=== PATIENT | female | born 1960 | race Caucasian/White ===

== ENCOUNTER → 2017-06-05 | Outpatient (CLI) | payer MEDICARE, OTHER ==
[2017-06-05 15:40] VITALS: BP 127/70; PULSE 69; TEMP 98.4; BMI 34.3
--- NOTE | 2017-06-05 16:03 | P.HPBAR ---
Bariatric H&P - History & Physicial H&P Date: 06/05/17 History & Physicial: Visit/CC: lap band fill Patient initial contact: Initial weight: Initial weight in pounds: Height: 5 ft 2 in Initial BMI: Last weight: Current weight: 85.139 kg Current weight in pounds: 187.70 Current BMI: 34.3 [place] body weight (based on NIH guidelines): 49.895 kg Excess body weight loss: The patient is a 56 year-old F who presents for Bariatric Assessment. He shouldn't presents today for LAP-BAND adjustment. She's not been seen over a year and a half. She currently lives in [place]. She is requesting some fluid removed from her band. 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 HAD WGT LOSS D/ T SURG, NO TX NEEDED FOR SLEEP APNEA. OFF HTN RX SINCE 2013 EST. HX ANKYLOSING SPONDYLITIS IN BACK. History of Any Multi-Drug Resistant Organisms: None Reported Past Surgical History: Appendectomy, Bariatric Surgery, Section, Cholecystectomy, Hysterectomy, Orthopedic Surgery, Tonsillectomy, Tubal Ligation Additional Past Surgical History / Comment(s): LAP BAND 2011. C-S X2. D&C'S. BRONCHS X3. Past Anesthesia/Blood Transfusion Reactions: Family History of Problems w/ Anesthesia, Motion Sickness, Postoperative Nausea & Vomiting (PONV) Additional Past Anesthesia/Blood Transfusion Reaction / Comm: W/ 1ST C-S HAD "WEIRD EXPERIENCE," (MENTAL CHANGES, CONFUSION). SON TAKES LONGER TIME TO AWAKEN , HAS "MISSING CHROMOSOME"; SISTER HAS PONV. Smoking Status: Former smoker Past Alcohol Use History: None Reported Additional Past Alcohol Use History / Comment(s): (SMOKED LIGHTLY [id number] EST) Past Drug Use History: None Reported - Past Family History Mother Sister(s) Family Medical History: Cancer, Deep Vein Thrombosis (DVT) Father Family Medical History: Deep Vein Thrombosis (DVT) Surgical - Exam Vital Signs Temp Pulse BP 98.4 F 69 127/70 06/05/17 15:37 06/05/17 15:37 06/05/17 15:37 - General well developed, no distress - Eyes PERRL - ENT normal pinna - Neck no masses - Respiratory normal expansion - Cardiovascular Rhythm: regular - Abdomen Abdomen: soft, non tender Bariatric Assessment & Plan Plan: The patient LAP-BAND was adjusted. 0.5 mL was removed from the band. She'll follow-up in one month if needed. Bariatric Checklist Checklist: Plan: Checklist: EGD: 1. Hiatal hernia: 2. H. Pylori: HgbA1c: Vitamin D: Smoking: Former smoker Primary care physician referral: Psychiatry clearance: Cardiology clearance: Sleep study: Diet journal: VTE risk score: VTE risk level: Rehab needs at discharge:
== END ==
LOC: BARWHC3 14:15
PROVIDERS: ATTEND Surgery
DX: Z48.815 Encounter for surgical aftercare following surgery on the digestive system (principal); Z98.84 Bariatric surgery status; F17.200 Nicotine dependence, unspecified, uncomplicated
CPT/HCPCS: 99212

== ENCOUNTER → 2018-01-22 | Outpatient (CLI) | payer MEDICARE ==
[2018-01-22 14:47] VITALS: RESP 16; BMI 42.5
--- NOTE | 2018-01-22 15:46 | P.HPBAR ---
Bariatric H&P - History & Physicial H&P Date: 01/22/18 History & Physicial: Visit/CC: band adj Patient initial contact: Initial weight: 160.572 kg Initial weight in pounds: 354.00 Height: 5 ft 2 in Initial BMI: 64.7 Last weight: Current weight: 105.375 kg Current weight in pounds: 232.31 Current BMI: 42.5 [place] body weight (based on NIH guidelines): 49.895 kg Excess body weight loss: 49.8% The patient is a 57 year-old F who presents for Bariatric Assessment. Patient presents today for lab band follow up. She is requesting a fill of her band. 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 HAD WGT LOSS D/ T SURG, NO TX NEEDED FOR SLEEP APNEA. OFF HTN RX SINCE 2013 EST. HX ANKYLOSING SPONDYLITIS IN BACK. History of Any Multi-Drug Resistant Organisms: None Reported Past Surgical History: Appendectomy, Bariatric Surgery, Section, Cholecystectomy, Hysterectomy, Orthopedic Surgery, Tonsillectomy, Tubal Ligation Additional Past Surgical History / Comment(s): LAP BAND 2011. C-S X2. D&C'S. BRONCHS X3. Past Anesthesia/Blood Transfusion Reactions: Family History of Problems w/ Anesthesia, Motion Sickness, Postoperative Nausea & Vomiting (PONV) Additional Past Anesthesia/Blood Transfusion Reaction / Comm: W/ 1ST C-S HAD "WEIRD EXPERIENCE," (MENTAL CHANGES, CONFUSION). SON TAKES LONGER TIME TO AWAKEN , HAS "MISSING CHROMOSOME"; SISTER HAS PONV. Smoking Status: Former smoker Past Alcohol Use History: None Reported Additional Past Alcohol Use History / Comment(s): (SMOKED LIGHTLY [id number] EST) Past Drug Use History: None Reported - Past Family History Mother Sister(s) Family Medical History: Cancer, Deep Vein Thrombosis (DVT) Father Family Medical History: Deep Vein Thrombosis (DVT) Surgical - Exam Vital Signs Resp 16 01/22/18 14:39 - General well developed, no distress - Eyes PERRL - Abdomen Abdomen: soft, non tender Bariatric Assessment & Plan Plan: Patient's lap band was adjusted. She had 0.5 mL added to her band. She currently is 11 mL in the band. She's ill drink water without difficulty. Bariatric Checklist Checklist: Plan: Checklist: EGD: 1. Hiatal hernia: 2. H. Pylori: HgbA1c: Vitamin D: Smoking: Former smoker Primary care physician referral: Psychiatry clearance: Cardiology clearance: Sleep study: Diet journal: VTE risk score: VTE risk level: Rehab needs at discharge:
== END | disposition home or self-care (01) ==
LOC: BARWHC3 14:10
PROVIDERS: ATTEND Surgery
DX: Z46.51 Encounter for fitting and adjustment of gastric lap band (principal); J44.9 Chronic obstructive pulmonary disease, unspecified; M79.7 Fibromyalgia; E78.5 Hyperlipidemia, unspecified; I10 Essential (primary) hypertension; M19.90 Unspecified osteoarthritis, unspecified site; G47.30 Sleep apnea, unspecified; Z99.89 Dependence on other enabling machines and devices; Z85.820 Personal history of malignant melanoma of skin; Z98.84 Bariatric surgery status; Z90.49 Acquired absence of other specified parts of digestive tract; Z98.51 Tubal ligation status; Z87.891 Personal history of nicotine dependence
CPT/HCPCS: 99212

== ENCOUNTER → 2018-02-16 | Outpatient (CLI) | payer MEDICARE ==
[2018-02-16 13:10] LABS: Basophils % (A) 0 %; Eosinophils % (A) 0 %; HCT 45.2 % (34.0-46.0); HGB 15.2 gm/dL (11.4-16.0); Lymphocytes # (A) 1.4 k/uL (1.0-4.8); Lymphocytes % (A) 11 %; MCH 29.7 pg (25.0-35.0); MCHC 33.7 g/dL (31.0-37.0); Mean Platelet Volume 7.6; Monocytes # (A) 0.6 k/uL (0-1.0); Monocytes % (A) 5 %; Neutrophils # (A) 10.5 k/uL (1.3-7.7); Neutrophils % (A) 83 %; Platelet Count 230 k/uL (150-450); RBC 5.13 m/uL (3.80-5.40); RDW 14.5 % (11.5-15.5); WBC 12.7 k/uL (3.8-10.6)
--- NOTE | 2018-02-16 13:18 | XR ---
EXAMINATION TYPE: XR chest 2V DATE OF EXAM: 02/16/2018 COMPARISON: 01/13/1712 HISTORY: Cough and fever for 3 days. TECHNIQUE: Frontal and lateral views of the chest are obtained. FINDINGS: There is no focal air space opacity, pleural effusion, or pneumothorax seen. The cardiac silhouette size is within normal limits. The osseous structures are intact. Mild acromio clavicular arthropathy is seen bilaterally. Minimal degenerative changes of the thoracic spine are noted. Bailee cystectomy clips reside within the right upper quadrant. IMPRESSION: No acute cardiopulmonary process. No focal consolidation to suggest pneumonia.
[2018-02-16 13:33] LABS: ALT 29 U/L (9-52); AST 31 U/L (14-36); Albumin 4.2 g/dL (3.5-5.0); Alkaline Phosphatase 147 U/L (38-126); Anion Gap 17 mmol/L; Blood Urea Nitrogen 10 mg/dL (7-17); C Reactive Protein 62.5 mg/L (<10.0); Calcium 9.9 mg/dL (8.4-10.2); Carbon Dioxide 23 mmol/L (22-30); Chloride 103 mmol/L (98-107); Creatine Kinase 57 U/L (30-135); Glucose 112 mg/dL (74-99); Potassium 4.1 mmol/L (3.5-5.1); Sodium 143 mmol/L (137-145); Total Bilirubin 0.4 mg/dL (0.2-1.3); Total Protein 7.5 g/dL (6.3-8.2)
[2018-02-16 14:08] LABS: Erythrocyte Sedimentation Rate 39 mm/hr (0-20)
== END | disposition home or self-care (01) ==
LOC: LABWHC1 12:06
PROVIDERS: ATTEND Internal Medicine
DX: J44.9 Chronic obstructive pulmonary disease, unspecified (principal); J12.9 Viral pneumonia, unspecified; E55.9 Vitamin D deficiency, unspecified; D81.9 Combined immunodeficiency, unspecified
CPT/HCPCS: 36415; 71046; 80053; 82550; 85025; 85652; 86140; 87502

== ENCOUNTER → 2019-02-14 | Outpatient (CLI) | payer MEDICARE ==
[2019-02-14 11:29] LABS: Basophils % (A) 0 %; Eosinophils # (A) 0.3 k/uL (0-0.7); Eosinophils % (A) 3 %; HGB 14.4 gm/dL (11.4-16.0); Lymphocytes # (A) 2.5 k/uL (1.0-4.8); Lymphocytes % (A) 27 %; MCHC 31.3 g/dL (31.0-37.0); MCV 89.3 fL (80.0-100.0); Mean Platelet Volume 7.2; Monocytes # (A) 0.5 k/uL (0-1.0); Monocytes % (A) 5 %; Neutrophils # (A) 5.9 k/uL (1.3-7.7); Neutrophils % (A) 63 %; Platelet Count 265 k/uL (150-450); RBC 5.15 m/uL (3.80-5.40); RDW 13.7 % (11.5-15.5); WBC 9.4 k/uL (3.8-10.6)
[2019-02-14 18:44] LABS: Albumin 3.9 g/dL (3.80-4.90); Albumin/Globulin Ratio 1.44 (1.60-3.17); Anion Gap 11.3 mmol/L (4.00-12.00); Calcium 9.7 mg/dL (8.7-10.3); Carbon Dioxide 25.7 mmol/L (21.6-31.8); Globulin 2.7 g/dL (1.6-3.3); Potassium 4.2 mmol/L (3.5-5.5); Total Bilirubin 0.8 mg/dL (0.2-1.2); Total Protein 6.6 g/dL (6.2-8.2)
[2019-02-15 13:40] LABS: Alt. alternata IgE Class CLASS 0; Alternaria alternata IgE <0.35 kU/L (<0.35); Asperg. fumagatus IgE <0.35 kU/L (<0.35); Asperg. fumagatus IgE Class CLASS 0; Bermuda Grass IgE <0.35 kU/L (<0.35); Birch(Com.Silvr) IgE <0.35 kU/L (<0.35); Birch(Com.Silvr) IgE Class CLASS 0; Cat Epith & Dander IgE <0.35 kU/L (<0.35); Cat Epith & Dander IgE Class CLASS 0; Clad herbarum IgE <0.35 kU/L (<0.35); Cockroach IgE <0.35 kU/L (<0.35); Cottonwood IgE <0.35 kU/L (<0.35); Dermato. Pteronyssinus IgE <0.35 kU/L (<0.35); Dermato. farinae IgE <0.35 kU/L (<0.35); Dermato. farinae IgE Class CLASS 0; Dog Dander IgE <0.35 kU/L (<0.35); Elm IgE <0.35 kU/L (<0.35); Maple (Box Elder) IgE <0.35 kU/L (<0.35); Maple (Box Elder) IgE Class CLASS 0; Mountain Cedar IgE <0.35 kU/L (<0.35); Mountain Cedar IgE Class CLASS 0; Mouse Urine IgE Class CLASS 0; Nettle IgE <0.35 kU/L (<0.35); Nettle IgE Class CLASS 0; Oak IgE <0.35 kU/L (<0.35); Penicillium notatum IgE Class CLASS 0; Rough Marshelder IgE <0.35 kU/L (<0.35); Rough Marshelder IgE Class CLASS 0; Timothy Grass IgE <0.35 kU/L (<0.35); White Ash IgE Class CLASS 0
== END | disposition home or self-care (01) ==
LOC: LABWHC1 10:51
PROVIDERS: ATTEND Internal Medicine
DX: J06.9 Acute upper respiratory infection, unspecified (principal)
CPT/HCPCS: 36415; 80053; 82785; 85025; 86003; 87070; 87205